=== PATIENT | female | born 1955 | race Caucasian/White ===

== ENCOUNTER 2025-11-19 11:34 | Emergency (ER) | payer MEDICARE, OTHER ==
[~2025-11-19] VITALS: Ht 152.4 cm; Wt 56.7 kg
[~2025-11-19 11:34] MED LIST: ASPI81TA31 PO; ATOR40TA PO; ESOM20TA PO; METF-440 PO
[2025-11-19 11:53] VITALS: BP 125/74
[2025-11-19] MEDS ORDERED: HYDR-3980 PO (12:35)
[2025-11-19] MEDS ORDERED: ONDA4TAB5 PO (12:37)
[2025-11-19 12:47] VITALS: BP 118/72; TEMP 98; O2SAT 96
== END 2025-11-19 12:52 | disposition home or self-care (01) ==
LOC: ER 11:34
DX: J11.1 Influenza due to unidentified influenza virus with other respiratory manifestations (principal); E11.9 Type 2 diabetes mellitus without complications; E78.00 Pure hypercholesterolemia, unspecified; F17.200 Nicotine dependence, unspecified, uncomplicated; Z79.82 Long term (current) use of aspirin; Z79.84 Long term (current) use of oral hypoglycemic drugs; Z87.01 Personal history of pneumonia (recurrent); Z88.7 Allergy status to serum and vaccine; Z20.822 Contact with and (suspected) exposure to COVID-19
CPT/HCPCS: A4606